=== PATIENT | female | born 1975 | race Caucasian/White ===

== ENCOUNTER 2017-06-21 11:26 | Emergency (ER) | payer SELFPAY ==
[~2017-06-21] VITALS: Ht 162.6 cm; Wt 60.8 kg
[2017-06-21 11:45] VITALS: BP 127/62
[2017-06-21 11:56] LABS: BILIRUBIN,URINE NEGATIVE (NEG); GLUCOSE,URINE NEGATIVE (NEG); NITRITE,URINE POSITIVE (NEG); PROTEIN,URINE NEGATIVE (NEG-TRACE)
[2017-06-21 12:08] LABS: BACTERIA,URINE MANY /HPF (0-FEW); RBC,URINE 0 /HPF (0-2); SQUAMOUS EPITHELIAL CELL,UR MOD /LPF
--- NOTE | 2017-06-21 12:25 | PHYS DOC ---
Past Medical History Past Medical History: Anemia, Diabetes-Type II, GERD, Hypertension, Other Additional Past Medical Histor: HIGH CHOL. Past Surgical History: Gastric Bypass, Other Additional Past Surgical Histo: HERNIA Alcohol Use: None Drug Use: None Adult General Chief Complaint Chief Complaint: SEXUALLY TRANSMITTED DISEASE [facility] HPI Patient is a 42 year old female presents to the emergency department stating that she was told by her boyfriend that he had been messing around and had tested positive for gonorrhea and chlamydia. Patient states that she is here to be tested and treated. Patient states that she has had lower pelvic pain and discomfort. She states that she's had white vaginal discharge with a fishy odor. Patient denies urinary frequency urgency or pain with urination. Review of Systems Review of Systems Constitutional: Denies fever or chills [] Eyes: Denies change in visual acuity, redness, or eye pain [] HENT: Denies nasal congestion or sore throat [] Respiratory: Denies cough or shortness of breath [] Cardiovascular: No additional information not addressed in HPI [] GI: Denies abdominal pain, nausea, vomiting, bloody stools or diarrhea [] : Denies dysuria or hematuria. Vaginal discharge Musculoskeletal: Denies back pain or joint pain [] Integument: Denies rash or skin lesions [] Neurologic: Denies headache, focal weakness or sensory changes [] Endocrine: Denies polyuria or polydipsia [] Current Medications Current Medications Current Medications Medications (Trade) Dose Ordered Sig/Kirk Start Time Stop Time Status Last Admin Dose Admin Azithromycin (Zithromax) 1,000 mg 1X ONCE 06/21/17 12:30 06/21/17 12:31 DC 06/21/17 12:32 1,000 MG Ceftriaxone Sodium (Rocephin Im) 250 mg 1X ONCE 06/21/17 12:30 06/21/17 12:31 DC 06/21/17 12:33 250 MG Metronidazole (Flagyl) 2,000 mg 1X ONCE 06/21/17 12:30 06/21/17 12:31 DC 06/21/17 12:33 2,000 MG Allergies Allergies Allergies Coded Allergies Type Severity Reaction Last Updated Verified Opioids - Morphine Analogues Allergy Intermediate Rash 06/21/17 Yes amoxicillin Allergy Intermediate Rash 06/21/17 Yes Physical Exam Physical Exam Constitutional: Well developed, well nourished, no acute distress, non-toxic appearance. [] HENT: Normocephalic, atraumatic, bilateral external ears normal, oropharynx moist, no oral exudates, nose normal. [] Eyes: PERRLA, EOMI, conjunctiva normal, no discharge. [] Neck: Normal range of motion, no tenderness, supple, no stridor. [] Cardiovascular:Heart rate regular rhythm, no murmur [] Lungs & Thorax: Bilateral breath sounds clear to auscultation [] Skin: Warm, dry, no erythema, no rash. [] Back: No tenderness Extremities: No tenderness, no cyanosis, no clubbing, ROM intact, no edema. [] Neurologic: Alert and oriented X 3, normal motor function, normal sensory function, no focal deficits noted. [] Psychologic: Affect normal, judgement normal, mood normal. Pelvic exam: Speculum exam with Rae DOMINGUEZ at bedside. Patient with thin white vaginal discharge noted no apparent noted. Manual exam with right adnexal and CMT noted. Patient with no left adnexal tenderness.[] Current Patient Data Vital Signs Vital Signs Date Time Temp Pulse Resp B/P (MAP) Pulse Ox O2 Delivery O2 Flow Rate FiO2 06/21/17 11:45 98.0 78 18 100 Room Air 98.0 Lab Values Laboratory Tests Test 06/21/17 11:40 06/21/17 11:48 Urine Collection Type Unknown Urine Color Yellow Urine Clarity Cloudy Urine pH 6.0 Urine Specific [place] 1.020 Urine Protein Negative mg/dL (NEG-TRACE) Urine Glucose (UA) Negative mg/dL (NEG) Urine Ketones (Stick) Negative mg/dL (NEG) Urine Blood Negative (NEG) Urine Nitrite Positive (NEG) Urine Bilirubin Negative (NEG) Urine Urobilinogen Dipstick 1.0 mg/dL (0.2 mg/dL) Urine Leukocyte Esterase Moderate (NEG) Urine RBC 0 /HPF (0-2) Urine WBC 11-20 /HPF (0-4) Urine Squamous Epithelial Cells Mod /LPF Urine Bacteria Many /HPF (0-FEW) POC Urine HCG, Qualitative Hcg negative (Negative) Microbiology 06/21/17 Wet Prep - Final, Complete EKG EKG [] Radiology/Procedures Radiology/Procedures [] Course & Med Decision Making Course & Med Decision Making Pertinent Labs and Imaging studies reviewed. (See chart for details) Patient's urine was positive for urinary tract infection. Patient was also positive for bacterial vaginosis. She had requested to be treated for sexually transmitted infections therefore received Rocephin, Flagyl and Zithromax. Patient will be discharged home on Macrobid as well as Flagyl. She will recommended to avoid sexual intercourse for the next 2 weeks. Signs and symptoms to return back to emergency department as been provided. All questions and concerns been answered at patient's bedside. [] Dragon Disclaimer Dragon Disclaimer This electronic medical record was generated, in whole or in part, using a voice recognition dictation system. Departure Departure Impression: Primary Impression: Bacterial vaginosis Additional Impressions: UTI (urinary tract infection) Concern about sexually transmitted disease in female without diagnosis Disposition: 01 HOME, SELF-CARE Condition: STABLE Referrals: [facility] (PCP) Patient Instructions: Bacterial Vaginosis, [id number], Sexually Transmitted Disease, Urinary Tract Infection, [id number] Additional Instructions: Urine was positive for urinary tract infection. Vaginal exam was positive for bacterial vaginosis. You've been treated for sexually transmitted infections. Medications as prescribed. Drink plenty of fluids such as water and cranberry juice. Avoid cranberry juice cocktail, carbonate beverages, citrus fruits, alcohol, and caffeine as these are considered irritants to the bladder. Refrain from sexual intercourse for the next 2 weeks. You will be notified if you're test results are positive for within the next 3- 4 days. Return back to emergency prior signs symptoms of become worse. Scripts Metronidazole (FLAGYL) 500 Mg Tablet 1 TAB PO BID, #14 TAB Prov: JULIANA BULLARD APRN 06/21/17 Nitrofurantoin Monohyd/M-Cryst (MACROBID 100 MG CAPSULE) 100 Mg Capsule 1 CAP PO BID, #14 CAP Prov: JULIANA BULLARD APRN 06/21/17 Problem Qualifiers Additional Impressions: UTI (urinary tract infection) Urinary tract infection type: site unspecified Hematuria presence: without hematuria Qualified Codes: N39.0 - Urinary tract infection, site not specified JULIANA BULLARD APRN Jun 21, 2017 12:25
[2017-06-21] MEDS ORDERED: AZITHROMYCIN 250 MG TABLET. PO ONE (12:30)
[2017-06-21] MEDS ORDERED: metroNIDAZOLE 500 MG TABLET PO ONE (12:30)
[2017-06-21] MEDS ORDERED: cefTRIAXone IM 250 MG VIAL IM ONE (12:30)
[2017-06-21] MEDS ORDERED: METR500T PO (13:08)
[2017-06-21] MEDS ORDERED: NITR100C62 PO (13:08)
--- NOTE | 2017-06-24 15:42 | VNOTE ---
CALL BACK NOTE CALL BACK Microbiology 06/21/17 Wet Prep - Final, Complete 06/21/17 Urine Culture - Final, Complete 06/21/17 Urine Culture Result 1 (ANTONETTE) - Final, Complete 06/21/17 Antimicrobic Susceptibility - Final, Complete Patient was notified her Chlamydia was positive. She was treated for STD here in the emergency department. Patient states he significant other has been treated, JULIANA BULLARD APRN Jun 24, 2017 15:42
== END 2017-06-21 13:15 | disposition home or self-care (01) ==
LOC: ER 11:26
DX: N76.0 Acute vaginitis (principal); N39.0 Urinary tract infection, site not specified; Z11.3 Encounter for screening for infections with a predominantly sexual mode of transmission; E11.9 Type 2 diabetes mellitus without complications; I10 Essential (primary) hypertension; K21.9 Gastro-esophageal reflux disease without esophagitis; Z86.2 Personal history of diseases of the blood and blood-forming organs and certain disorders involving the immune mechanism; Z98.84 Bariatric surgery status; Z88.1 Allergy status to other antibiotic agents; Z88.5 Allergy status to narcotic agent
CPT/HCPCS: 81001; 81025; 87086; 87186; 87491; 87591; 96372; 99284; J0696; Q0111; Q0144